=== PATIENT | female | born 2000 | race Asian ===

== ENCOUNTER 2024-07-07 13:26 | Emergency (ER) | payer MEDICAID ==
[~2024-07-07] VITALS: Ht 149.9 cm; Wt 81.0 kg
[2024-07-07 13:40] VITALS: TEMP 98.3
[2024-07-07 15:40] VITALS: BP 145/86; PULSE 78; RESP 16; O2SAT 98
[2024-07-07] MEDS ORDERED: IBUP-1554 PO (17:19)
[2024-07-07] MEDS ORDERED: ACET-66 PO (17:19)
[2024-07-07] MEDS ORDERED: METH-659 PO (17:19)
[2024-07-07] MEDS: KETOROLAC TROMETHAMINE 60 MG/2 ML VIAL IM ONE (17:28)
[2024-07-07] MEDS: ACETAMINOPHEN 500 MG TABLET PO ONE (17:29)
== END 2024-07-07 18:13 | disposition home or self-care (01) ==
LOC: EMS 13:26
DX: G89.29 Other chronic pain (principal); M54.50 Low back pain, unspecified
CPT/HCPCS: 99283; 96372; J1885

== ENCOUNTER 2024-07-23 13:14 | Emergency (ER) | payer MEDICAID ==
[~2024-07-23] VITALS: Ht 152.4 cm; Wt 90.9 kg
[~2024-07-23 13:14] MED LIST: ACET-66 PO; IBUP-1554 PO; METH-659 PO
[2024-07-23 13:29] VITALS: TEMP 98.5
[2024-07-23 13:45] VITALS: BP 126/89; PULSE 85; RESP 18; O2SAT 99
== END 2024-07-23 13:52 | disposition home or self-care (01) ==
LOC: EMS 13:14
DX: H10.13 Acute atopic conjunctivitis, bilateral (principal)
CPT/HCPCS: 99173; 99282; Z7502

== ENCOUNTER 2024-08-22 10:07 | Emergency (ER) | payer MEDICAID ==
[~2024-08-22] VITALS: Ht 149.9 cm; Wt 84.1 kg
[2024-08-22 10:14] VITALS: TEMP 98.6
[2024-08-22 11:22] LABS: BASOPHILS % (AUTO) 0.5 % (0.0-2.0); EOSINOPHILS % (AUTO) 4.2 % (1.0-6.0); HEMATOCRIT 44.9 % (36-46); HEMOGLOBIN 14.6 g/dL (12.0-16.0); LYMPHOCYTES % (AUTO) 35.6 % (22.0-44.0); MEAN CORPUSCULAR HEMOGLOBIN 27.7 pg (26.0-34.0); MEAN CORPUSCULAR HGB CONC 32.6 G/dL (31.0-37.0); MEAN CORPUSCULAR VOLUME 85 fL (80-100); MONOCYTES # (AUTO) 0.6 K/uL (0.1-1.0); MONOCYTES % (AUTO) 7.3 % (2.0-9.0); NEUTROPHILS # (AUTO) 4.4 K/uL (1.8-7.7); NEUTROPHILS % (AUTO) 52.4 % (40.0-70.0); PLATELET COUNT (AUTO) 296 K/uL (150-450); RED BLOOD CELL COUNT(AUTO) 5.29 MIL/uL (4.00-5.20); RED CELL DISTRIBUTION WIDTH 13.5 % (11.5-14.5); WHITE BLOOD COUNT (AUTO) 8.4 K/uL (4.5-11.0)
[2024-08-22] MEDS: MAG HYDROX/ALUMINUM HYD/SIMETH ES 30 ML SUSPENSION UDCUP PO ONE (11:24)
[2024-08-22] MEDS: ONDANSETRON HCL 4 MG/2 ML VIAL IVP ONE (11:24)
[2024-08-22] MEDS: SODIUM CHLORIDE 0.9% 500 ML IV ONE (11:24)
[2024-08-22] MEDS: FAMOTIDINE 20 MG/2 ML VIAL IVP ONE (11:26)
[2024-08-22 11:30] LABS: ANION GAP 9 mmol/L (8-16); CALCIUM, TOTAL 8.8 mg/dL (8.8-10.5); CARBON DIOXIDE 27 mmol/L (22-29); CHLORIDE 103 mmol/L (98-107); CREATININE 0.61 mg/dL (0.60-1.30); GLOMERULAR FILTR. RATE CALC > 60 mL/min (>60); GLUCOSE,RANDOM 155 mg/dL (70-110); POTASSIUM 3.6 mmol/L (3.5-5.1); SODIUM SERUM 139 mmol/L (136-145); UREA NITROGEN, BLOOD 8 mg/dL (7-18)
[2024-08-22 11:41] LABS: HCG,QUANTITATIVE 1 mIU/mL (0-6); LIPASE 25 U/L (16-77)
[2024-08-22 11:43] LABS: APPEARANCE,URINE CLEAR (CLEAR); BILIRUBIN,URINE NEGATIVE (NEGATIVE); COLOR,URINE LIGHT YELLOW (YELLOW); GLUCOSE, URINE (UA) NEGATIVE (NEGATIVE); KETONES,URINE NEGATIVE (NEGATIVE); LEUKOCYTE ESTERASE ,URINE SMALL (NEGATIVE); NITRATE,URINE NEGATIVE (NEGATIVE); OCCULT BLOOD,URINE NEGATIVE (NEGATIVE); PH,URINE 6.5 (5.0-8.0); PROTEIN,URINE TRACE mg/dL (NEGATIVE); SPECIFIC GRAVITIY, URINE 1.018 (1.003-1.030); UROBILINOGEN,URINE <=1.0 mg/dL (<=1.0)
[2024-08-22 12:07] LABS: BACTERIA,URINE Few /HPF (None Seen); RBC,URINE 0-2 /HPF (0-2); SQUAMOUS EPITHELIAL CELL,UR Moderate /LPF (None Seen)
[2024-08-22 12:48] VITALS: BP 135/87; PULSE 72; RESP 18; O2SAT 99
[2024-08-22] MEDS ORDERED: ONDA-104 PO (13:15)
[2024-08-22] MEDS ORDERED: FAMO20 PO (13:16)
== END 2024-08-22 14:12 | disposition home or self-care (01) ==
LOC: EMS 10:18
DX: R11.2 Nausea with vomiting, unspecified (principal); K31.84 Gastroparesis
CPT/HCPCS: 99284; 96374; 96361; 96375; 80048; 81001; 83690; 84702; 85025; 36415; J3490; J2405; J7040

== ENCOUNTER 2025-05-07 12:23 | Emergency (ER) | payer MEDICAID ==
[~2025-05-07] VITALS: Ht 152.4 cm; Wt 88.6 kg
[~2025-05-07 12:23] MED LIST changes: -ACET-66 PO; +FAMO20 PO; -IBUP-1554 PO; -METH-659 PO; +ONDA-104 PO
[2025-05-07 12:33] VITALS: TEMP 98.1
[2025-05-07] MEDS ORDERED: GUAI100L96 PO (12:33)
[2025-05-07 13:02] LABS: COVID AG,FIA SOURCE NASAL SWAB
[2025-05-07 13:08] LABS: PLATELET COUNT (AUTO) 313 K/uL (150-450); RED BLOOD CELL COUNT(AUTO) 5.53 MIL/uL (4.00-5.20); RED CELL DISTRIBUTION WIDTH 13.3 % (11.5-14.5); WHITE BLOOD COUNT (AUTO) 8.9 K/uL (4.5-11.0)
[2025-05-07 13:13] LABS: CALCIUM, TOTAL 8.7 mg/dL (8.8-10.5); CREATININE 0.48 mg/dL (0.60-1.30); GLOMERULAR FILTR. RATE CALC > 60 mL/min (>60); GLUCOSE,RANDOM 100 mg/dL (70-110); SODIUM SERUM 137 mmol/L (136-145); UREA NITROGEN, BLOOD 7 mg/dL (7-18)
[2025-05-07 13:21] LABS: SARS-COV2 (COVID) ANTIGEN,FIA Negative (Negative)
[2025-05-07 13:22] LABS: INFLUENZA TYPE A NEGATIVE FOR TYPE A (NEGATIVE); INFLUENZA TYPE B NEGATIVE FOR TYPE B (NEGATIVE)
[2025-05-07 13:26] LABS: HCG,QUANTITATIVE < 1 mIU/mL (0-6)
[2025-05-07] MEDS: ACETAMINOPHEN 500 MG TABLET PO ONE (14:59)
[2025-05-07] MEDS: ONDANSETRON 4 MG TABLET PO ONE (14:59)
[2025-05-07] MEDS: BENZONATATE 100 MG CAPSULE PO ONE (14:59)
[2025-05-07] MEDS ORDERED: ONDA-104 PO (15:08)
[2025-05-07] MEDS ORDERED: ACET-3385 PO (15:08)
[2025-05-07] MEDS ORDERED: BENZ-227 PO (15:08)
[2025-05-07 15:14] LABS: ASPARTATE AMINOTRANSFERASE 43.0 U/L (15-37); TOTAL PROTEIN, SERUM 9.0 g/dL (6.4-8.2)
[2025-05-07 16:53] LABS: APPEARANCE,URINE HAZY (CLEAR); GLUCOSE, URINE (UA) NEGATIVE (NEGATIVE); LEUKOCYTE ESTERASE ,URINE MODERATE (NEGATIVE); NITRATE,URINE NEGATIVE (NEGATIVE); OCCULT BLOOD,URINE TRACE (NEGATIVE); SPECIFIC GRAVITIY, URINE 1.021 (1.003-1.030)
[2025-05-07 17:16] LABS: SQUAMOUS EPITHELIAL CELL,UR Rare /LPF (None Seen)
[2025-05-07] MEDS ORDERED: CEPH-558 PO (17:19)
[2025-05-07] MEDS: CEPHALEXIN MONOHYDRATE 500 MG CAPSULE PO ONE (17:30)
[2025-05-07 17:31] VITALS: BP 136/84; PULSE 82; RESP 18; O2SAT 96
== END 2025-05-07 17:34 | disposition home or self-care (01) ==
LOC: EMS 12:25
DX: B34.9 Viral infection, unspecified (principal); N39.0 Urinary tract infection, site not specified; R05.9 Cough, unspecified; N89.8 Other specified noninflammatory disorders of vagina; Z79.899 Other long term (current) drug therapy; Z20.822 Contact with and (suspected) exposure to COVID-19
CPT/HCPCS: 99284; 87426; 80048; 80076; 81001; 83690; 84702; 85025; 87086; 87804; 36415; Q0162